=== PATIENT | female | born 1945 | race Caucasian/White ===

== ENCOUNTER 2016-08-08 01:09 | Day surgery (SDC) | payer MEDICARE ==
[~2016-08-08 01:09] MED LIST: ACET-2605 PO; AMIO200T PO; CALC-140 PO; CREST10T PO; DABI150C PO; HYDR25TA4 PO; ISOS30TA4 PO; LISI10TA PO; METO100T3 PO; MULT-1018 PO; NIAC10002 PO; NITR0.4T SL; POTA10CA42 PO; RANI150T11 PO; UBID100C16 PO
[2016-08-08] MEDS ORDERED: CeFAZolin 2 Gm/50 mL D5W Duplex Bag IV ONE (14:13)
== END 2016-08-08 23:59 | disposition home or self-care (01) ==
LOC: SOUO 01:09
PROVIDERS: ATTEND Internal Medicine Cardiovascular Disease
DX: I48.4 Atypical atrial flutter (principal); Z53.9 Procedure and treatment not carried out, unspecified reason